=== PATIENT | female | born 1970 | race Caucasian/White ===

== ENCOUNTER 2017-04-01 09:13 | Emergency (ER) | payer MEDICAID ==
[~2017-04-01] VITALS: Ht 162.6 cm; Wt 60.0 kg
[~2017-04-01 09:13] MED LIST: IBUP-1223 PO
[2017-04-01] MEDS ORDERED: SODIUM CHLORIDE 0.9% 1,000ML IVBOLUS ONE (09:30)
[2017-04-01] MEDS ORDERED: SODIUM CHLORIDE FLUSH 10ML SYR IVF ONE (09:30)
[2017-04-01 09:53] LABS: HEMATOCRIT 41.4 % (34.6-47.8); HEMOGLOBIN 13.8 g/dL (11.7-16.4); WHITE BLOOD COUNT 9.5 x10^3/uL (3.4-10)
[2017-04-01] MEDS ORDERED: PLEASE ENTER HEIGHT AND WEIGHT MC SCH (10:00)
[2017-04-01 10:03] LABS: BLOOD UREA NITROGEN 23 mg/dL (7-18)
[2017-04-01 10:25] VITALS: BP 122/65
== END 2017-04-01 11:13 | disposition home or self-care (01) ==
LOC: ED 11:11
DX: R55 Syncope and collapse (principal)
CPT/HCPCS: 36415; 80048; 82040; 85025; 96360; 99284; J7030